=== PATIENT | male | born 1975 | race Caucasian/White ===

== ENCOUNTER 2022-08-20 13:34 | Emergency (ER) | payer MEDICAID ==
[2022-08-20] MEDS ORDERED: Lidocaine 1% 10 ML MDV INJECT ONE (13:49)
[2022-08-20] MEDS ORDERED: Ketorolac 60 MG/2 ML SDV IM ONE (13:50)
[2022-08-20] MEDS ORDERED: Lidocaine/EPINEPHrine/Tetracaine Soln 1 ML TOP ONE (13:50)
[2022-08-20] MEDS ORDERED: Lidocaine/EPINEPHrine/Tetracaine Soln 1 ML ONE (13:58)
== END 2022-08-20 15:00 | disposition home or self-care (01) ==
LOC: JD.ED 13:34
DX: S71.111A Laceration without foreign body, right thigh, initial encounter (principal); W29.3XXA Contact with powered garden and outdoor hand tools and machinery, initial encounter
CPT/HCPCS: 12002; 96372; 99283; J1885; J3490

== ENCOUNTER 2024-02-20 09:44 | Emergency (ER) | payer SELFPAY ==
[2024-02-20] MEDS: Sodium Chloride 0.9% 1,000 ML IV SCH (10:04)
[2024-02-20] MEDS: diphenhydrAMINE 50 MG/ML SDV IVPUSH ONE (10:05)
[2024-02-20] MEDS: Famotidine 20 MG/2 ML SDV IVPUSH ONE (10:09)
[2024-02-20] MEDS: methylPREDNISolone Sodium Succinate 125 MG/2 ML SDV IVPUSH ONE (10:09)
== END 2024-02-20 12:15 | disposition home or self-care (01) ==
LOC: JD.ED 09:44
DX: L50.0 Allergic urticaria (principal); Z88.0 Allergy status to penicillin; Z79.51 Long term (current) use of inhaled steroids; Z79.899 Other long term (current) drug therapy
CPT/HCPCS: 96374; 96375; 99283; J1200; J2919; J3490; J7030

== ENCOUNTER 2024-10-10 21:58 | Emergency (ER) | payer BC ==
[2024-10-10] MEDS: Ondansetron 4 MG Tab.DIS PO ONE (22:31)
[2024-10-10] MEDS: Ketorolac 60 MG/2 ML SDV IM ONE (22:31)
== END 2024-10-10 23:43 | disposition home or self-care (01) ==
LOC: JD.ED 21:58
DX: M54.2 Cervicalgia (principal); F17.210 Nicotine dependence, cigarettes, uncomplicated; Z88.0 Allergy status to penicillin; Z79.899 Other long term (current) drug therapy
CPT/HCPCS: 72040; 96372; 99283; A9270; J1171; J1885; 99284